=== PATIENT | male | born 1950 | race African-American/Black ===

== ENCOUNTER → 2018-04-18 | Outpatient (CLI) | payer BC, MEDICARE ==
[2018-04-18] MEDS: REGADENOSON 0.4 MG/5 ML DISP.SYRIN. IV (09:00)
== END | disposition home or self-care (01) ==
LOC: NM 07:30
DX: Z01.818 Encounter for other preprocedural examination (principal); I50.1 Left ventricular failure, unspecified
CPT/HCPCS: 78452; 93017; 96374; 96375; 96376; A9500; J2785